=== PATIENT | female | born 1990 | race African-American/Black ===

== ENCOUNTER 2016-09-26 18:01 | Inpatient (IN) ==
[2016-09-26] MEDS: LACTATED RINGERS 1,000 ML IV SCH (18:24)
[2016-09-26 18:29] LABS: Basophils % 0.3 % (0.0-0.8); Eosinophils # 0.2 10*3/uL (0.0-0.87); Eosinophils % 4.1 % (0.00-10.9); Hematocrit 33.3 VOL% (35.7-47.0); Hemoglobin 10.8 GM/DL (12.0-16.0); Immature Granulocytes % 1.5 %; Immature Granulocytes Absolute 0.09 #; Lymphocytes # 1.3 10*3/uL (1.4-4.0); Lymphocytes % 22.6 % (21.3-54.2); Mean Corpuscular HGB Conc 32.4 GM/DL (32-36); Mean Corpuscular Hemoglobin 29 PG (27-34); Mean Corpuscular Volume 88.1 FL (87-102); Mean Platelet Volume 10.3 FL (9.6-12.0); Monocytes # 0.7 10*3/uL (0.11-0.8); NRBC # 0.02 10*3/uL; Neutrophils # 3.5 10*3/uL (1.4-7.4); Neutrophils % 59.5 % (38.7-73.9); Platelet Count 306 T/CUMM (130-400); Red Blood Count 3.78 MC/CUMM (3.8-5.5); Red Cell Distribution Width 13.4 % (9.3-17.3); White Blood Count 5.8 T/CUMM (4-12)
[2016-09-26] MEDS ORDERED: AMPICILLIN INJ 2,000 MG in SODIUM CHLORIDE 0.9% 100 ML IV ONE (19:00)
[2016-09-26] MEDS: AMPICILLIN INJ 1,000 MG in SODIUM CHLORIDE 0.9% 100 ML IV SCH (23:13)
[2016-09-27] MEDS ORDERED: ZALEPLON 5 MG CAPSULE PO ONE (01:05)
[2016-09-27] MEDS: LACTATED RINGERS 1,000 ML IV SCH ×3 (02:14→19:52)
[2016-09-27] MEDS: AMPICILLIN INJ 1,000 MG in SODIUM CHLORIDE 0.9% 100 ML IV SCH ×4 (03:01→15:30)
[2016-09-27] MEDS: BUTORPHANOL 2 MG/ML VIAL IV PRN ×2 (07:43→19:32)
[2016-09-27] MEDS: ONDANSETRON 4 MG/2 ML VIAL IV PRN ×2 (12:03→19:32)
--- NOTE | 2016-09-27 12:26 | OB/GYN History & Physical ---
History of Present Illness Chief complaint: Here for induction of labor @ 39.3 wks History of present illness: Ms. Wharton is a 26 year old female primigravida with an EDC 09/30/16 per 6.6 wk ultrasound with EGA @ 39.3 wks on admission and 39.4 wks today. Her history is current, up to date, and reviewed. 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) - Surgical History Cardiac Surgeries: Patient Denies: Cardiac Catheterization Additional Surgical History: breast biopsy - Family History Family History: Reports;: Family Hypertension (gm) Denies;: Family Anesthesia Reaction, Family Cancer, Family Diabetes, Family Heart Disease, Family Hematology, Family Psychiatric Problems, Family Stroke, Additional Family History - Social History Smoking Status: Never smoker Frequency of Alcohol Use: None Type of Drug Use: None Marital Status: Single Functional capacity: independent ambulation Exam PHLEBOTOMIST ASSOCIATE - Constitutional Vitals: Vital Signs Temp Pulse Resp BP Pulse Ox 09/27/16 08:00 97.7 F 100 H 20 136/78 09/27/16 03:57 97.6 F 97 H 17 112/61 09/26/16 23:49 97.5 F L 99 H 17 122/78 09/26/16 22:30 96 H 17 129/86 09/26/16 18:28 97.4 F L 115 H 20 142/76 98 09/26/16 18:13 97.4 F L 114 H 20 142/76 98 General appearance: normal weight - Head Head exam: Present: normal inspection - Eye Eye exam: Present: EOMI - ENT ENT exam: Present: normal exam, normal external ear exam - Neck Neck exam: Present: normal inspection - Respiratory Respiratory exam: Present: clear to auscultation bilaterally - Cardiovascular Cardiovascular exam: Present: regular rate and rhythm - GI/Abdominal GI/Abdominal exam: Present: normal bowel sounds - Extremities Exam Extremities exam: Present: normal inspection, normal capillary refill, full ROM - Back Exam Back exam: Present: normal inspection - Neurological Exam Neurological exam: Present: alert, oriented X3, normal gait Assessment and Plan (1) Group beta Strep positive Status: Acute Assessment and plan: Ampicilloin 2 grams initially then 1 gram every 4 hours until delivery Current Visit: Yes (2) Vitamin D deficiency Status: Acute Current Visit: Yes Results - Labs CBC & BMP: 09/26/16 18:23 Labs: Laboratory Tests 09/26/16 09/26/16 18:23 18:23 WBC 5.8 RBC 3.78 L Hgb 10.8 L Hct 33.3 L MCV 88.1 MCH 29 MCHC 32.4 RDW 13.4 Plt Count 306 MPV 10.3 Neut % (Auto) 59.5 Lymph % (Auto) 22.6 Cache % (Auto) 12.0 Eos % (Auto) 4.1 Baso % (Auto) 0.3 Neut # (Auto) 3.5 Lymph # (Auto) 1.3 L [place] # (Auto) 0.7 Eos # (Auto) 0.2 Baso # (Auto) 0.0 Immature Gran % 1.5 Nucleated RBC % 0.3 Immature Gran # 0.09 Nucleated RBCs # 0.02 Immature Plt Fraction 0.0 Blood Type B POSITIVE Antibody Screen Negative Quality Measures - VTE Contraindication to Pharmacological VTE Prophylaxis: Continuous Epidural Infusion
--- NOTE | 2016-09-27 12:35 | OB/GYN Progress Note ---
Assessment and Plan (1) Group beta Strep positive Status: Acute Assessment and plan: Ampicilloin 2 grams initially then 1 gram every 4 hours until delivery Current Visit: Yes (2) Vitamin D deficiency Status: Acute Current Visit: Yes GUMMED TAPE PRESS OPERATOR - PN: Subj Interval history: S: C/O vaginal tenderness since induction started with pitocin. States feels contractions. Refuses any pain medications presently O: FHTs @ 120s with spontaneous variability no decelerations noted UCs every 2-3 min/ 60-70 sec/ mild SVE 2 cm/ 80%/ -2 GBS positive A: IUP @ 39.4 wks, Category I FHR tracing, Cytotec induction, GBS positive P: Continue ampicillin until delivery Informed patient that she is making good cervical change with effacement and starting to dilate- will continue Cytotec for now Questions answered to desired level of satisfaction of patient and male significant other at the bedside Exam GUMMED TAPE PRESS OPERATOR - Constitutional Vitals: Vital Signs Temp Pulse Resp BP Pulse Ox 09/27/16 08:00 97.7 F 100 H 20 136/78 09/27/16 03:57 97.6 F 97 H 17 112/61 09/26/16 23:49 97.5 F L 99 H 17 122/78 09/26/16 22:30 96 H 17 129/86 09/26/16 18:28 97.4 F L 115 H 20 142/76 98 09/26/16 18:13 97.4 F L 114 H 20 142/76 98 Results - Labs CBC & BMP: 09/26/16 18:23
[2016-09-27] MEDS ORDERED: OXYTOCIN/LR 20 UNIT/1,000 ML BAG IV SCH (15:30)
[2016-09-27] MEDS ORDERED: PROMETHAZINE 25 MG/1 ML VIAL IM ONE (15:42)
[2016-09-27] MEDS ORDERED: fentaNYL 2 MCG/ROPIV 0.2% EPID 150 ML EPIDURAL SCH (15:42)
[2016-09-27] MEDS ORDERED: ePHEDrine 50 MG/ML AMP IV PRN (15:42)
[2016-09-27] MEDS ORDERED: diphenhydrAMINE 50 MG/1 ML VIAL IV PRN (15:42)
[2016-09-27] MEDS ORDERED: FAMOTIDINE 20 MG/2 ML VIAL IV ONE (15:43)
[2016-09-27] MEDS ORDERED: CITRIC ACID/SODIUM CITRATE 30 ML UDCUP PO ONE (15:43)
[2016-09-27] MEDS ORDERED: PHENYLEPHRINE 1 MG/10 ML SYRINGE IV ONE (16:10)
[2016-09-27] MEDS ORDERED: ONDANSETRON 4 MG/2 ML VIAL ONE (16:10)
[2016-09-27] MEDS ORDERED: SUCCINYLCHOLINE 200 MG/10 ML VIAL ONE (16:10)
[2016-09-27] MEDS ORDERED: PROPOFOL 200 MG/20 ML VIAL IV ONE (16:10)
--- NOTE | 2016-09-27 19:09 | OB/GYN Progress Note ---
Assessment and Plan (1) Group beta Strep positive Status: Acute Assessment and plan: Ampicilloin 2 grams initially then 1 gram every 4 hours until delivery Current Visit: Yes (2) Vitamin D deficiency Status: Acute Current Visit: Yes ALLERGIST/MD - PN: Subj Interval history: S: "This epidural ain't working and they stuck me twice! They said I would need pain medicines in the IV if I needed it." O: FHTs @ 150s with spontaneous accelerations, no decelerations noted UCs every 2-3 min/ 50-60 sec/ mild SVE 3 cm/ 80%/ -1 station. SROM @ 1807 with clear fluid noted IUPC applied with clear flashback noted FSE applied to bony prominence GBS positive Pitocin infusing A: IUP @ 39.4 wks, Category I FHR tracing, Pitocin induction of labor, SROM with clear fluid, IUPC and FSE applied P: Continue with present management plan. Reposition for comfort. Questions answered to desired level of satisfaction. Exam ALLERGIST/MD - Constitutional Vitals: Vital Signs Temp Pulse Resp BP 09/27/16 12:00 98.1 F 97 H 16 127/83 09/27/16 08:00 97.7 F 100 H 20 136/78 09/27/16 03:57 97.6 F 97 H 17 112/61 09/26/16 23:49 97.5 F L 99 H 17 122/78 09/26/16 22:30 96 H 17 129/86 Results - Labs CBC & BMP: 09/26/16 18:23
--- NOTE | 2016-09-27 21:02 | OB/GYN Progress Note ---
Assessment and Plan (1) Group beta Strep positive Status: Acute Assessment and plan: Ampicilloin 2 grams initially then 1 gram every 4 hours until delivery Current Visit: Yes (2) Vitamin D deficiency Status: Acute Current Visit: Yes TECHNOLOGY INTERNSHIP - PN: Subj Interval history: At 2042, States feels contractions. C/O increasing pain with contractions O: FHTs at 120-130s with accels. No decelerations noted UCs every 1-2 min/ 50-60 sec/ 55-she75 mmHg SVE 3 cm/ 80%/ -3 Pitocin @ 22 mu/min A: IUP @ 39.4 wks, Induction, Failed induction P: Prepare for delivery. Risks of delivery discussed to include pain, infection,injury to bladder and/or bowel, injury. Verbalized understanding. Informed will prepare for induction. Questions answered to desired level of satisf action. Dr. Comer agrees with plan of care. Exam TECHNOLOGY INTERNSHIP - Constitutional Vitals: Vital Signs Temp Pulse Resp BP 09/27/16 12:00 98.1 F 97 H 16 127/83 09/27/16 08:00 97.7 F 100 H 20 136/78 09/27/16 03:57 97.6 F 97 H 17 112/61 09/26/16 23:49 97.5 F L 99 H 17 122/78 09/26/16 22:30 96 H 17 129/86 Results - Labs CBC & BMP: 09/26/16 18:23
--- NOTE | 2016-09-27 21:02 | OB/GYN Progress Note ---
Assessment and Plan (1) Failed induction of labor Status: Acute Assessment and plan: 1. PT COUNSELED REGARDING GREATER THAN 24HR INDUCTION AND STILL IN LATENT PHASE OF LABOR. PT EXPLAINED HER OPTIONS INCLUDING CONTINUED MANAGEMENT WITH PITOCIN VS SURGICAL MANAGEMENT WITH A DELIVERY. PT. AGREES WITH RECOMMENDATION TO PROCEED WITH DELIVERY BY . SURGERY DISCUSSED WITH PT INCLUDING RISK OF BLEEDING, INFECTION, BOWEL OR BLADDER INJURY, HYSTERECTOMY. ALL QUESTIONS ANSWERED. CONSENT SIGNED AND WITNESSED. Current Visit: Yes (2) Group beta Strep positive Status: Acute Current Visit: Yes A AUXILIARY - PN: Subj Interval history: PT 26Y/O @ 39+4 WKS, GBS+ ADMITTED YESTERDAY FOR CYTOTEC ELECTIVE INDUCTION STARTED AT 7PM. PT PROGRESSED TO 3 CM AND SPONTANEOUSLY RUPTURED. PT HAS BEEN ON PITOCIN SINCE 12PM TODAY. PT CERVIX UNCHANGED. DENIES ANY FEVER OR CHILLS. + MOVEMENT. PNC UNCOMPLICATED WITH JIN ESTRADA, [facility] Exam A AUXILIARY - Constitutional Vitals: Vital Signs Temp Pulse Resp BP 09/27/16 12:00 98.1 F 97 H 16 127/83 09/27/16 08:00 97.7 F 100 H 20 136/78 09/27/16 03:57 97.6 F 97 H 17 112/61 09/26/16 23:49 97.5 F L 99 H 17 122/78 09/26/16 22:30 96 H 17 129/86 General appearance: no acute distress - Antepartum / Post Antepartum Exam Cervix - Dilatation: 3CM Effacement: 80 Station: -3 Rupture: SROM Heart Rate: 130 BPM REACTIVE, CATEGORY 2 TRACING, TOCO EVERY 2-3MIN - Respiratory Respiratory exam: Present: clear to auscultation bilaterally - Cardiovascular Cardiovascular exam: Present: regular rate and rhythm - GI/Abdominal GI/Abdominal exam: Present: normal bowel sounds - Extremities Exam Extremities exam: Present: normal inspection Results - Labs CBC & BMP: 09/26/16 18:23
[2016-09-27] MEDS ORDERED: ONDANSETRON 4 MG/2 ML VIAL IV PRN (21:12)
[2016-09-27] MEDS ORDERED: OXYTOCIN/LR 20 UNIT/1,000 ML BAG IV ONE (21:12)
[2016-09-27] MEDS ORDERED: ACETAMINOPHEN 325 MG TABLET PO PRN (21:12)
[2016-09-27] MEDS ORDERED: RHO(D) IMMUNE GLOBULIN 300 MCG SYRINGE IM ONE (21:12)
--- NOTE | 2016-09-27 21:12 | Operative Note ---
Date of procedure: 09/27/16 Pre-op diagnosis: 26Y/O @ 39+4 WKS, GBS+ FAILED INDUCTION Post-op diagnosis: same Procedure: FINDINGS: A living Female , vertex , ISABEL position, weight 7lbs 4oz, scores 7 and 9, cord around the left arm. DESCRIPTION OF PROCEDURE: The patient was brought to the operating room after her spinal preparation, and Dolan had been performed. The abdomen was prepped and draped in the normal sterile fashion and tested for analgesia. When found to be adequate, a low-abdominal Pfannenstiel incision was made with the first knife and carried down to the fascia with the scalpel. The fascia was incised in the midline and extended laterally with curved Mari scissors. Oren clamps were placed on the fascial edge, anteriorly. The rectus muscles were by sharp dissection. The rectus muscles were divided in the midline by sharp dissection. The parietoperitoneum was grasped with hemostats and carefully entered and the incision extended with Metzenbaum scissors. The bladder blade was inserted. The visceroperitoneum was grasped with smooth pickups, entered with Metzenbaum scissors, and extended laterally. The bladder flap was created by gentle blunt dissection and placed behind the bladder blade. The lower uterine segment was carefully incised with a scalpel and extended laterally with bandage scissors. A living female infant was delivered atraumatically from the vertex presentation. The baby was suctioned and cried immediately, and was handed to the pediatric team in attendance. The placenta was delivered with gentle uterine massage. The uterus was explored with a wet lap sponge and found to be clear of membranes. The angles of the incision were sutured 0 vicryl in a locked running fashion. Hemostasis was carefully checked and found to be satisfactory. The fallopian tubes and ovaries were inspected and found to be normal bilaterally. Interceed was then placed over the uterine incision. The peritoneum was approximated using 2.0 chromic in a running fashion. The muscle was reapproximated using 2.0 chromic in an interrupted fashion. The fascia was closed with 0-Vicryl in a running fashion. The skin was closed with insorb halie. The patient was transferred to the recovery room in good condition. Anesthesia: regional Surgeon / Physician: Unique Comer Employment Coach: Keke Peraza Estimated blood loss: other (700CC) Specimens: other (PLACENTA, CORD, MEMBRANES) Condition: stable Disposition: floor Results - Labs CBC & BMP: 09/26/16 18:23 Discharge Plan - Discharge Medications No Action No Known Home Medications [No Known Home Medications] - Follow Up or Referral - Forms/Instructions
[2016-09-27] MEDS ORDERED: LACTATED RINGERS 1,000 ML IV SCH (21:30)
[2016-09-27] MEDS ORDERED: METHYLERGONOVINE 0.2 MG/1 ML AMP ONE (21:57)
[2016-09-27 22:02] LABS: Cord Venous Blood HCO3 21.8 MMOL/L; Cord Venous Blood PCO2 41.5 MMHG; Cord Venous Blood PO2 40.9 MMHG
[2016-09-27 22:11] LABS: Cord Arterial Blood HCO3 24.9 MMOL/L
[2016-09-27] MEDS ORDERED: TISSUE ADHESIVE 1 EACH APPLICATOR TOP ONE (22:14)
[2016-09-27] MEDS ORDERED: fentaNYL 100 MCG/2 ML VIAL ONE (22:48)
[2016-09-27] MEDS ORDERED: MIDAZOLAM 2 MG/2 ML VIAL ONE (22:49)
[2016-09-27] MEDS ORDERED: NALOXONE 0.4 MG/ML VIAL IV PRN (23:36)
[2016-09-27] MEDS ORDERED: HYDROmorphone PCA 30 MG/30 ML SYRINGE IV SCH (23:45)
[2016-09-28 09:33] LABS: Eosinophils % 0.1 % (0.00-10.9); Mean Corpuscular Volume 90.8 FL (87-102)
--- NOTE | 2016-09-28 09:34 | OB/GYN Progress Note ---
Assessment and Plan (1) Group beta Strep positive Status: Resolved Assessment and plan: Ampicilloin 2 grams initially then 1 gram every 4 hours until delivery Current Visit: Yes (2) Vitamin D deficiency Status: Acute Current Visit: Yes (3) Status post primary low transverse section Status: Acute Current Visit: Yes (4) Anemia Status: Acute Current Visit: Yes Qualifiers: Anemia type: iron deficiency LEGAL ANALYST - PN: Subj Interval history: Bottlefeeding presently. Complains of some incisional soreness. Denies any nausea vomiting presently A: Postoperative day 1, bottlefeeding, stable P: Continue routine postoperative care. Increase ambulation. DC Dolan and MOTOR VEHICLE FIELD REPRESENTATIVE today. Start on p.o. pain medication. Patient with a plan of CARE mutually agrees Exam LEGAL ANALYST - Constitutional Vitals: Vital Signs Temp Pulse Pulse Resp BP BP Pulse Ox 09/28/16 09:00 98.2 F 108 H 18 140/68 09/28/16 04:00 98.0 F 105 H 18 128/76 09/28/16 00:10 90 20 135/90 100 09/28/16 00:00 97.2 F L 95 H 18 138/89 09/27/16 12:00 98.1 F 97 H 16 127/83 Pulse Ox 09/28/16 09:00 97 09/28/16 04:00 09/28/16 00:10 09/28/16 00:00 100 09/27/16 12:00 General appearance: no acute distress - Gyencological / Post Surgical Post Surgical Exam Lungs: bilateral: normal Extremities LEGAL ANALYST: Present: normal (Uterus firm, midline, 2 fingerbreadths below the umbilicus. Scant rubra noted on perineal pad) Abdomen obstetrics progress note: Present: normal appearance Incision OB: Present: normal (Dressing removed, small amount of dark brown drainage noted on dressing, incision intact and healing well with Steri-Strips intact no drainage noted), dry, intact - Eye Eye exam: Present: EOMI Pupils: Present: normal accommodation - ENT ENT exam: Present: normal exam - Neck Neck exam: Present: normal inspection - Respiratory Respiratory exam: Present: clear to auscultation bilaterally - Cardiovascular Cardiovascular exam: Present: regular rate and rhythm - GI/Abdominal GI/Abdominal exam: Present: normal bowel sounds - Extremities Exam Extremities exam: Present: normal inspection, normal capillary refill, full ROM - Back Exam Back exam: Present: normal inspection - Neurological Exam Neurological exam: Present: alert, oriented X3, normal gait - Psychiatric Psychiatric exam: Present: normal affect, normal mood - Skin Skin exam: Present: normal color, warm, dry Results - Labs CBC & BMP: 09/26/16 18:23 Labs: Laboratory Tests 09/26/16 09/26/16 09/27/16 18:23 18:23 21:53 WBC 5.8 RBC 3.78 L Hgb 10.8 L Hct 33.3 L MCV 88.1 MCH 29 MCHC 32.4 RDW 13.4 Plt Count 306 MPV 10.3 Neut % (Auto) 59.5 Lymph % (Auto) 22.6 Swift % (Auto) 12.0 Eos % (Auto) 4.1 Baso % (Auto) 0.3 Neut # (Auto) 3.5 Lymph # (Auto) 1.3 L Swift # (Auto) 0.7 Eos # (Auto) 0.2 Baso # (Auto) 0.0 Immature Gran % 1.5 Nucleated RBC % 0.3 Immature Gran # 0.09 Nucleated RBCs # 0.02 Immature Plt Fraction 0.0 Cord ABG pH 7.282 Cord ABG pCO2 54.0 Cord ABG pO2 19.1 Cord ABG HCO3 24.9 Cord ABG Total CO2 26.6 Cord ABG Base Excess -2.7 Cord VBG pH Cord VBG pCO2 Cord VBG pO2 Cord VBG HCO3 Cord VBG Total CO2 Cord VBG Base Excess Blood Type B POSITIVE Antibody Screen Negative 09/27/16 21:54 WBC RBC Hgb Hct MCV MCH MCHC RDW Plt Count MPV Neut % (Auto) Lymph % (Auto) Swift % (Auto) Eos % (Auto) Baso % (Auto) Neut # (Auto) Lymph # (Auto) Swift # (Auto) Eos # (Auto) Baso # (Auto) Immature Gran % Nucleated RBC % Immature Gran # Nucleated RBCs # Immature Plt Fraction Cord ABG pH Cord ABG pCO2 Cord ABG pO2 Cord ABG HCO3 Cord ABG Total CO2 Cord ABG Base Excess Cord VBG pH 7.339 Cord VBG pCO2 41.5 Cord VBG pO2 40.9 Cord VBG HCO3 21.8 Cord VBG Total CO2 23.1 Cord VBG Base Excess -3.7 Blood Type Antibody Screen
[2016-09-28 09:37] LABS: Basophils % 0.2 % (0.0-0.8); Hematocrit 27.8 VOL% (35.7-47.0); Immature Granulocytes % 0.6 %; Immature Granulocytes Absolute 0.07 #; Lymphocytes # 1.2 10*3/uL (1.4-4.0); Lymphocytes % 9.1 % (21.3-54.2); Mean Corpuscular HGB Conc 31.7 GM/DL (32-36); Mean Corpuscular Hemoglobin 29 PG (27-34); Mean Platelet Volume 10.4 FL (9.6-12.0); Monocytes # 1.5 10*3/uL (0.11-0.8); Monocytes % 11.9 % (1.7-12.7); NRBC # 0.02 10*3/uL; Neutrophils # 9.9 10*3/uL (1.4-7.4); Neutrophils % 78.1 % (38.7-73.9); Platelet Count 255 T/CUMM (130-400); Red Blood Count 3.06 MC/CUMM (3.8-5.5); Red Cell Distribution Width 13.5 % (9.3-17.3)
[2016-09-28 09:40] LABS: White Blood Count 12.7 T/CUMM (4-12)
[2016-09-28 09:41] LABS: Hemoglobin 8.8 GM/DL (12.0-16.0)
--- NOTE | 2016-09-28 09:43 | Anesthesia Post-Op ---
Anesthesia Post OP - Post Ansesthetic Evaluation Patient seen in post op: Yes Resp: within normal limits CV: within normal limits Mental: within normal limits Temp: within normal limits [id number]: within normal limits Nausea and Vomiting: within normal limits Pain: within normal limits
[2016-09-28] MEDS: ONDANSETRON 4 MG/2 ML VIAL IV PRN (09:58)
[2016-09-28] MEDS: DOCUSATE SODIUM 100 MG CAPSULE PO SCH ×2 (10:06→21:49)
[2016-09-28] MEDS: IBUPROFEN 800 MG TABLET PO PRN (12:11)
[2016-09-28] MEDS: MULTIVITAMIN (PRENATAL) TABLET PO SCH (14:18)
[2016-09-28] MEDS: FERROUS SULFATE 325 MG TABLET PO SCH ×2 (14:56→21:49)
[2016-09-28] MEDS: SIMETHICONE CHEW 80 MG TABLET PO PRN (21:49)
[2016-09-28] MEDS: MAGNESIUM HYDROXIDE SUSP 30 ML UDCUP PO PRN (21:49)
[2016-09-29] MEDS: DOCUSATE SODIUM 100 MG CAPSULE PO SCH ×2 (08:07→22:04)
[2016-09-29] MEDS: FERROUS SULFATE 325 MG TABLET PO SCH ×3 (08:07→22:04)
[2016-09-29] MEDS: MULTIVITAMIN (PRENATAL) TABLET PO SCH (08:07)
[2016-09-29] MEDS: MAGNESIUM HYDROXIDE SUSP 30 ML UDCUP PO PRN ×2 (08:10→19:38)
[2016-09-29] MEDS: SIMETHICONE CHEW 80 MG TABLET PO PRN ×2 (08:10→19:39)
[2016-09-29] MEDS: IBUPROFEN 800 MG TABLET PO PRN ×2 (08:10→19:38)
--- NOTE | 2016-09-29 10:27 | OB/GYN Progress Note ---
Assessment and Plan (1) Group beta Strep positive Status: Resolved Assessment and plan: Ampicilloin 2 grams initially then 1 gram every 4 hours until delivery Current Visit: Yes (2) Vitamin D deficiency Status: Acute Current Visit: Yes (3) Status post primary low transverse section Status: Acute Current Visit: Yes (4) Anemia Status: Acute Current Visit: Yes Qualifiers: Anemia type: iron deficiency ORDNANCE HANDLER - PN: Subj Interval history: Complain of some incisional soreness. Denies any other problems presently Exam ORDNANCE HANDLER - Constitutional Vitals: Vital Signs Temp Pulse Resp BP Pulse Ox 09/29/16 07:47 98.2 F 118 H 20 130/72 98 09/29/16 05:00 18 09/29/16 04:00 98.6 F 110 H 18 122/62 96 09/29/16 03:00 18 09/29/16 00:00 98.9 F 116 H 18 130/78 96 09/28/16 20:00 97.8 F 110 H 18 117/76 95 09/28/16 15:43 98.5 F 111 H 20 122/72 98 09/28/16 11:50 97.7 F 101 H 20 117/68 97 General appearance: no acute distress - Gyencological / Post Surgical Post Surgical Exam Lungs: bilateral: normal Extremities ORDNANCE HANDLER: Present: normal Abdomen obstetrics progress note: Present: normal appearance, soft Incision OB: Present: normal (Healing well no separate areas noted Steri-Strips intact), dry, intact (Uterus firm, midline, 2 fingerbreadths below the umbilicus. Scant rubra noted on perineal pad) - Head Head exam: Present: normal inspection - Eye Pupils: Present: normal accommodation - ENT ENT exam: Present: normal exam, normal external ear exam - Neck Neck exam: Present: normal inspection - Respiratory Respiratory exam: Present: clear to auscultation bilaterally - Cardiovascular Cardiovascular exam: Present: regular rate and rhythm - GI/Abdominal GI/Abdominal exam: Present: normal bowel sounds - Extremities Exam Extremities exam: Present: normal inspection, normal capillary refill, full ROM - Back Exam Back exam: Present: normal inspection - Neurological Exam Neurological exam: Present: alert, oriented X3, normal gait - Psychiatric Psychiatric exam: Present: normal affect, normal mood - Skin Skin exam: Present: normal color, warm, dry Results - Labs CBC & BMP: 09/28/16 09:26 Labs: Laboratory Results - last 72 hr 09/26/16 09/26/16 09/27/16 18:23 18:23 21:53 WBC 5.8 RBC 3.78 L Hgb 10.8 L Hct 33.3 L MCV 88.1 MCH 29 MCHC 32.4 RDW 13.4 Plt Count 306 MPV 10.3 Neut % (Auto) 59.5 Lymph % (Auto) 22.6 Mason % (Auto) 12.0 Eos % (Auto) 4.1 Baso % (Auto) 0.3 Neut # (Auto) 3.5 Lymph # (Auto) 1.3 L Mason # (Auto) 0.7 Eos # (Auto) 0.2 Baso # (Auto) 0.0 Immature Gran % 1.5 Nucleated RBC % 0.3 Immature Gran # 0.09 Nucleated RBCs # 0.02 Immature Plt Fraction 0.0 Cord ABG pH 7.282 Cord ABG pCO2 54.0 Cord ABG pO2 19.1 Cord ABG HCO3 24.9 Cord ABG Total CO2 26.6 Cord ABG Base Excess -2.7 Cord VBG pH Cord VBG pCO2 Cord VBG pO2 Cord VBG HCO3 Cord VBG Total CO2 Cord VBG Base Excess Blood Type B POSITIVE Antibody Screen Negative 09/27/16 09/28/16 21:54 09:26 WBC 12.7 H D RBC 3.06 L Hgb 8.8 L D Hct 27.8 L MCV 90.8 MCH 29 MCHC 31.7 L RDW 13.5 Plt Count 255 MPV 10.4 Neut % (Auto) 78.1 H Lymph % (Auto) 9.1 L Mason % (Auto) 11.9 Eos % (Auto) 0.1 Baso % (Auto) 0.2 Neut # (Auto) 9.9 H Lymph # (Auto) 1.2 L Mason # (Auto) 1.5 H Eos # (Auto) 0.0 Baso # (Auto) 0.0 Immature Gran % 0.6 Nucleated RBC % 0.2 Immature Gran # 0.07 Nucleated RBCs # 0.02 Immature Plt Fraction 0.0 Cord ABG pH Cord ABG pCO2 Cord ABG pO2 Cord ABG HCO3 Cord ABG Total CO2 Cord ABG Base Excess Cord VBG pH 7.339 Cord VBG pCO2 41.5 Cord VBG pO2 40.9 Cord VBG HCO3 21.8 Cord VBG Total CO2 23.1 Cord VBG Base Excess -3.7 Blood Type Antibody Screen
--- NOTE | 2016-09-29 18:23 | Pathology Report from [facility] ---
[facility] ACCESSION # : [id number] PATIENT NAME : Kirill Wharton ORDERING DR : EVA CASTILLO DO CLINICAL HX: IUP @ 39.4 weeks - Failure to progress POST-OP DX: Same SPECIMEN INFO: Placenta GROSS DESCRIPTION: Received fresh labeled with the patients name and consists of a 496 gram placenta that measures 20.3 cm x up to 7.2 cm x up to 1.9 cm. membrane are opaque, and pink-wall. The umbilical cord is centrally inserted, contains three vessels and is 25.2 cm. The surface is blue-pink -gordon with multiple areas of subchorionic fibrin present mostly notably at the periphery which is also noted to be flattened. The maternal surface is hemorrhagic with mildly disrupted cotyledons. A few scattered areas of calcifications are noted as well as areas of fibrin measuring up to 1.5 cm. No other gross abnormalities on sectioning. Sections submitted: A membranes and cord, B and maternal surfaces. DIAGNOSIS FOR KIRILL WHARTON: PLACENTA, 39.4 WEEKS GESTATIONAL AGE, SECTION: Mature placenta, 496 grams trimmed weight. Remote placental infarct. Tri-vascular umbilical cord, 25.2 cm in length. COLLECTED DATE: 09/28/2016 [facility] REPORT DATE: 09/29/2016 ELECTRONICALLY SIGNED BY: Marlene Rebolledo M.D. 09/29/2016 - 13:55:28 [facility]
[2016-09-30 07:46] VITALS: BP 124/72
[2016-09-30] MEDS: FERROUS SULFATE 325 MG TABLET PO SCH (08:16)
[2016-09-30] MEDS: MULTIVITAMIN (PRENATAL) TABLET PO SCH (08:16)
[2016-09-30] MEDS: DOCUSATE SODIUM 100 MG CAPSULE PO SCH (08:16)
--- NOTE | 2016-09-30 09:30 | Discharge Summary ---
Hospital Course - Hospital Course Hospital Course: Patient is now a that presented for induction of labor at 39.3 weeks gestation labor progressed unsuccessfully. Patient had a primary section per Dr. Unique Denton that was a low transverse incision. She delivered a male . She is bottlefeeding. She has been stable. Incision has been dry and intact with Steri-Strips intact and she is being discharged home today. Diagnosis - Discharge Diagnosis (1) Group beta Strep positive Status: Resolved (2) Vitamin D deficiency Status: Acute (3) Status post primary low transverse section Status: Resolved (4) Anemia Status: Acute Specialty Discharge - Follow Up or Referrals Discharge Plan - Discharge Data Disposition: Disch To Home/Self Care Condition at Discharge: Stable Hygiene: no restrictions Weight Bearing at Discharge: full weight bearing Contact your physician if you experience:: fever over 101, Difficulty voiding, Redness or swelling, Nausea/Vomiting, Shortness of breath, Bleeding, pain uncontrolled by pain medications - Discharge Medications New HYDROcodone/ACETAMIN 5-325 [[place] 5-325] 1 tablet PO Q6H PRN #25 tablet PRN Reason: Pain Moderate (4-7) Ibuprofen Tab [Motrin Tab] 800 mg PO Q8H PRN #90 tablet PRN Reason: Pain Severe (8-10) Ferrous Sulfate Tab [Feosol Original Tab] 325 mg PO TID #90 tablet No Action No Known Home Medications [No Known Home Medications] - Follow Up or Referral Follow Up: Keke Peraza CFNP [Advanced Practice Nurse] - 1 Week - Forms/Instructions Instructions: Section (DC), Surgical Site Infections (GEN), Bleeding (DC) Exam - Constitutional Vitals: Period Temp Pulse Resp BP Sys/[place] Pulse Ox Last 24 Hr 97.7 F-98.9 F 95-115 18-20 115-136/65-87 96-98 General appearance: no acute distress, over weight - Head Head exam: Present: normocephalic - Eye Pupils: Present: normal accommodation - ENT ENT exam: Present: normal exam, normal external ear exam - Neck Neck exam: Present: normal inspection - Respiratory Respiratory exam: Present: clear to auscultation bilaterally - Cardiovascular Cardiovascular exam: Present: regular rate and rhythm - GI/Abdominal GI/Abdominal exam: Present: normal bowel sounds, other (Uterus firm, midline, 3 fingerbreadths below the umbilicus. Scant rubra noted on pad. Incision noted dry and intact without redness edema ecchymosis or drainage noted. Steri- Strips intact. No separate areas noted) - Extremities Exam Extremities exam: Present: normal inspection, normal capillary refill, full ROM - Back Exam Back exam: Present: normal inspection - Neurological Exam Neurological exam: Present: alert, oriented X3, normal gait - Psychiatric Psychiatric exam: Present: normal affect, normal mood - Skin Skin exam: Present: normal color, warm, dry Discharge Results Procedures and tests throughout hospitalization: Laboratory Tests 09/26/16 09/26/16 09/27/16 18:23 18:23 21:53 WBC 5.8 RBC 3.78 L Hgb 10.8 L Hct 33.3 L MCV 88.1 MCH 29 MCHC 32.4 RDW 13.4 Plt Count 306 MPV 10.3 Neut % (Auto) 59.5 Lymph % (Auto) 22.6 [place] % (Auto) 12.0 Eos % (Auto) 4.1 Baso % (Auto) 0.3 Neut # (Auto) 3.5 Lymph # (Auto) 1.3 L [place] # (Auto) 0.7 Eos # (Auto) 0.2 Baso # (Auto) 0.0 Immature Gran % 1.5 Nucleated RBC % 0.3 Immature Gran # 0.09 Nucleated RBCs # 0.02 Immature Plt Fraction 0.0 Cord ABG pH 7.282 Cord ABG pCO2 54.0 Cord ABG pO2 19.1 Cord ABG HCO3 24.9 Cord ABG Total CO2 26.6 Cord ABG Base Excess -2.7 Cord VBG pH Cord VBG pCO2 Cord VBG pO2 Cord VBG HCO3 Cord VBG Total CO2 Cord VBG Base Excess Blood Type B POSITIVE Antibody Screen Negative 09/27/16 09/28/16 21:54 09:26 WBC 12.7 H D RBC 3.06 L Hgb 8.8 L D Hct 27.8 L MCV 90.8 MCH 29 MCHC 31.7 L RDW 13.5 Plt Count 255 MPV 10.4 Neut % (Auto) 78.1 H Lymph % (Auto) 9.1 L [place] % (Auto) 11.9 Eos % (Auto) 0.1 Baso % (Auto) 0.2 Neut # (Auto) 9.9 H Lymph # (Auto) 1.2 L [place] # (Auto) 1.5 H Eos # (Auto) 0.0 Baso # (Auto) 0.0 Immature Gran % 0.6 Nucleated RBC % 0.2 Immature Gran # 0.07 Nucleated RBCs # 0.02 Immature Plt Fraction 0.0 Cord ABG pH Cord ABG pCO2 Cord ABG pO2 Cord ABG HCO3 Cord ABG Total CO2 Cord ABG Base Excess Cord VBG pH 7.339 Cord VBG pCO2 41.5 Cord VBG pO2 40.9 Cord VBG HCO3 21.8 Cord VBG Total CO2 23.1 Cord VBG Base Excess -3.7 Blood Type Antibody Screen DS: Provider Date of admission: 09/26/16 18:01 Primary care physician: . No PCP Attending physician on admission: Salas Bush DO Consults: 09/26/16 18:13 Consult to Anesthesiology [CONS] Routine Consulting Provider: Reason for Anesthesiology: Epidural Consult Comment: Epidural for pain managment 09/27/16 21:12 Consult to Bail Agent [CONS] Routine Consult Bail Agent: Breast Feeding Discharging clinician: ARMINDA Martínez
== END 2016-09-30 12:40 | disposition home or self-care (01) | DRG 766 ==
LOC: N.LD 18:01 → N.OB 09-28 08:53
PROVIDERS: ADMIT Obstetrics & Gynecology; ATTEND Obstetrics & Gynecology
PROC: LDCSECT (ICD-10-PCS; 2016-09-27 21:00)